=== PATIENT | female | born 1960 | race Caucasian/White ===

== ENCOUNTER 2022-08-12 14:53 | Outpatient (CLI) | payer BC ==
[2022-08-12] MEDS ORDERED: Iopamidol 300 61% 100 ML VIAL FS ONE (15:00)
== END 2022-08-12 14:54 | disposition home or self-care (01) ==
LOC: CSHCT 14:53
PROVIDERS: ATTEND Internal Medicine Hematology & Oncology
DX: C56.2 Malignant neoplasm of left ovary (principal); K76.9 Liver disease, unspecified; D73.9 Disease of spleen, unspecified; N28.1 Cyst of kidney, acquired; N13.1 Hydronephrosis with ureteral stricture, not elsewhere classified; N13.4 Hydroureter
CPT/HCPCS: 71260; 74177; 82565; Q9967

== ENCOUNTER 2022-08-16 23:22 | Emergency (ER) | payer BC | END 2022-08-17 02:30 | disposition home or self-care (01) | LOC: CSHERS 23:22 | DX: Z53.21 Procedure and treatment not carried out due to patient leaving prior to being seen by health care provider (principal) ==

== ENCOUNTER 2023-06-21 14:17 | Outpatient (CLI) | payer BC | END 2023-06-21 14:18 | disposition home or self-care (01) | LOC: CSHMAMMO 14:17 | PROVIDERS: ATTEND Obstetrics & Gynecology | DX: Z12.31 Encounter for screening mammogram for malignant neoplasm of breast (principal); Z85.850 Personal history of malignant neoplasm of thyroid | CPT/HCPCS: 77063; 77067 ==

== ENCOUNTER 2023-08-10 05:45 | Day surgery (SDC) | payer BC ==
[2023-08-09 09:20] VITALS: BMI 21.2
[2023-08-10] MEDS ORDERED: Bupivacaine PF 0.5% 30 ML VIAL ONE (06:35)
[2023-08-10] MEDS ORDERED: EPINEPHrine 1 MG/ML VIAL ONE (06:35)
[2023-08-10] MEDS ORDERED: Sevoflurane 250 ML INH ANEST BOTTLE ONE (06:39)
[2023-08-10] MEDS ORDERED: CEFAZOLIN 2 GM VIAL ONE (06:46)
[2023-08-10] MEDS ORDERED: fentaNYL 50 mcg/mL 1 mL Vial ONE (07:08)
[2023-08-10] MEDS ORDERED: PROPOFOL 20 ML ONE (07:08)
[2023-08-10] MEDS ORDERED: Ondansetron PF 4 MG/2 ML Vial ONE (07:08)
[2023-08-10] MEDS ORDERED: Dexamethasone 20 MG/5 ML VIAL ONE (07:08)
[2023-08-10] MEDS ORDERED: Lidocaine 1% PF 5 ML VIAL ONE (07:08)
[2023-08-10] MEDS ORDERED: Acetaminophen 325 MG TAB PO PRN (07:59)
[2023-08-10] MEDS ORDERED: HYDROcodone/Acetaminophen 5/325 mg Tablet PO PRN (07:59)
== END 2023-08-10 08:40 | disposition home or self-care (01) ==
LOC: CSHSDC 05:45
PROVIDERS: ATTEND Surgery
PROC: 05HM33Z Insertion of Infusion Device into Right Internal Jugular Vein, Percutaneous Approach (ICD-10-PCS; principal; 2023-08-10)
DX: C56.9 Malignant neoplasm of unspecified ovary (principal); I10 Essential (primary) hypertension; F10.90 Alcohol use, unspecified, uncomplicated; F15.90 Other stimulant use, unspecified, uncomplicated; Z91.040 Latex allergy status; Z79.899 Other long term (current) drug therapy; Z88.8 Allergy status to other drugs, medicaments and biological substances
CPT/HCPCS: 71045; C1788; J0171; J1100; J1642; J2405; J2704; J3010; S0020

== ENCOUNTER 2024-08-09 07:40 | Outpatient (CLI) | payer MEDICARE | END 2024-08-09 07:41 | disposition home or self-care (01) | LOC: CSHMAMMO 07:40 | PROVIDERS: ATTEND Obstetrics & Gynecology | DX: Z12.31 Encounter for screening mammogram for malignant neoplasm of breast (principal); Z13.820 Encounter for screening for osteoporosis; M81.0 Age-related osteoporosis without current pathological fracture; M85.80 Other specified disorders of bone density and structure, unspecified site; E28.39 Other primary ovarian failure | CPT/HCPCS: 77063; 77067; 77080 ==

== ENCOUNTER 2025-05-15 10:16 | Outpatient (CLI) | payer MEDICARE | END 2025-05-15 10:17 | disposition home or self-care (01) | LOC: CSHULT 10:16 | PROVIDERS: ATTEND Urology | DX: N28.1 Cyst of kidney, acquired (principal); N13.30 Unspecified hydronephrosis | CPT/HCPCS: 76770 ==